=== PATIENT | female | born 1975 | race Caucasian/White ===

== ENCOUNTER 2018-06-08 14:41 | Emergency (ER) | payer MEDICAID ==
[~2018-06-08] VITALS: Ht 177.8 cm; Wt 99.8 kg
[2018-06-08 15:01] VITALS: BP 138/82
--- NOTE | 2018-06-08 15:08 | NUR ---
EKG BEING PERFORMED AT THIS TIME.
--- NOTE | 2018-06-08 15:10 | NUR ---
FLU LIKE SYMPTOMS SINCE LAST NIGHT. N/V X 1 DAY. DENIES DIARRHEA. TOOK TYLENOL @ 9 AM THIS AM. DURING ASSEMENT PT ALSO C/O CHEST PAIN. PT STATES THE CHEST PAIN IS MORE LIKE A MUSCLE ACHE. PMH:DM, ASTHMA, HIGH CHOLESTEROL, HTN, DEPRESSION RX: METFORMIN, LISINOPRIL, METOPROLOL, HUMALOG, LANTUS, CITRAMINE, ASPRIN, ZYRTEC, VITAMINS D NKA
[2018-06-08] MEDS ORDERED: IBUPROFEN 600 MG TAB PO ONE (15:20)
--- NOTE | 2018-06-08 15:24 | NUR ---
Patient being evaluated by physician at bedside.
[2018-06-08] MEDS ORDERED: ALBUTEROL SULFATE/IPRATROPIU 3 ML SOL IH ONE (15:45)
[2018-06-08] MEDS ORDERED: KETOROLAC 60 MG/2 ML VIAL IM ONE (15:45)
[2018-06-08] MEDS ORDERED: diphenhydrAMINE 50 MG/ML VIAL IM ONE (15:45)
--- NOTE | 2018-06-08 17:52 | NUR ---
Patient discharged with v/s stable. Written and verbal after care instructions given and explained. Patient alert, oriented and verbalized understanding of instructions. Ambulatory with steady gait. All questions addressed prior to discharge. ID band removed. Patient advised to follow up with PMD. Rx of TAMIFLU/PROMETHAZINE DM/AZITHROMYCIN given. Patient educated on indication of medication including possible reaction and side effects. Opportunity to ask questions provided and answered.
[2018-06-08 17:53] VITALS: BP 132/81
== END 2018-06-08 17:52 | disposition home or self-care (01) ==
LOC: MED 14:41
DX: J20.9 Acute bronchitis, unspecified (principal); R11.2 Nausea with vomiting, unspecified; J45.909 Unspecified asthma, uncomplicated; I10 Essential (primary) hypertension; F32.9 Major depressive disorder, single episode, unspecified; E78.00 Pure hypercholesterolemia, unspecified
CPT/HCPCS: 36415; 82948; 87804; 93005; 96372; 99284; J1200; J1885; J7620

== ENCOUNTER 2018-06-10 13:36 | Emergency (ER) | payer MEDICAID, OTHER ==
[~2018-06-10] VITALS: Ht 177.8 cm; Wt 99.8 kg
[2018-06-10 13:41] VITALS: BP 139/87
[2018-06-10] MEDS ORDERED: ALBUTEROL SULFATE/IPRATROPIU 3 ML SOL IH ONE (13:50)
[2018-06-10] MEDS ORDERED: methylPREDNISolone SS 125 MG/2 ML VIAL IVP ONE (14:05)
[2018-06-10] MEDS ORDERED: NACL 0.9% 1,000 ML IV ONE (14:05)
[2018-06-10] MEDS ORDERED: MAG SULF 2000 MG/WATER PREMIX 50 ML IV ONE (14:05)
[2018-06-10] MEDS ORDERED: cefTRIAXone 1,000 MG VIAL ONE (14:24)
[2018-06-10] MEDS ORDERED: KETOROLAC 30 MG/ML VIAL IVP ONE (15:10)
[2018-06-10 16:21] VITALS: BP 130/75
== END 2018-06-10 16:21 | disposition home or self-care (01) ==
LOC: MED 13:36
DX: J45.909 Unspecified asthma, uncomplicated (principal); E11.9 Type 2 diabetes mellitus without complications; E78.5 Hyperlipidemia, unspecified; I10 Essential (primary) hypertension
CPT/HCPCS: 71045; 94640; 96365; 96366; 96375; 99283; J0696; J1885; J2930; J3475; J7030; J7060; J7620

== ENCOUNTER 2019-03-05 12:07 | Emergency (ER) | payer SELFPAY ==
[~2019-03-05] VITALS: Ht 177.8 cm; Wt 103.9 kg
[2019-03-05 12:15] VITALS: BP 174/92
--- NOTE | 2019-03-05 12:19 | NUR ---
PT PLACED IN W/C AND ASSISTED BACK INTO LOBBY TO WAIT FOR AVAILABLE BED.
--- NOTE | 2019-03-05 13:15 | NUR ---
PT TAKEN TO BED 5 VIA W/C.
--- NOTE | 2019-03-05 13:23 | NUR ---
43 Y/O F PRESENTS TO ER C/O OF RIGHT KNEE PAIN SINCE YESTERDAY. PT WAS AT THE MARKET AND SLIPPED ON WATER AND FELL ON KNEE. DENIES LOC OR HEAD INJURY. RIGHT KNEE IS RED, SWOLLEN WITH AN ABRASION. PT APPLIED ICE ON KNEE LAST NIGHT. PAIN LEVEL 5/10, DULL CONSTANT PAIN. NKA. MED HX: DM, HTN, PVCS, HYPERLIPIDEMIA, AND DEPRESSION. SAFETY MEASURES IN PLACE. ERMD MADE AWARE OF PT STATUS.
--- NOTE | 2019-03-05 13:35 | NUR ---
ERMD AT BEDSIDE
--- NOTE | 2019-03-05 13:59 | NUR ---
EMT AT BEDSIDE APPLYING KNEE IMMOBILIZER AND CRUTCHES
--- NOTE | 2019-03-05 14:02 | NUR ---
TRANSFER OF CARE AND REPORT GIVEN TO [facility]
[2019-03-05 14:26] VITALS: BP 162/90
--- NOTE | 2019-03-05 14:26 | NUR ---
Patient discharged with v/s stable. Written and verbal after care instructions given and explained. Patient alert, oriented and verbalized understanding of instructions. Ambulatory with steady gait using crutches. All questions addressed prior to discharge. ID band removed. Patient advised to follow up with PMD. Copy of x-ray report given to patient. Rx of Motrin 800mg and [place] 5mg-325mg given. Patient educated on indication of medication including possible reaction and side effects. Opportunity to ask questions provided and answered.
== END 2019-03-05 14:26 | disposition home or self-care (01) ==
LOC: MED 12:07
DX: M25.461 Effusion, right knee (principal); M25.561 Pain in right knee; I10 Essential (primary) hypertension; E11.9 Type 2 diabetes mellitus without complications; E78.5 Hyperlipidemia, unspecified
CPT/HCPCS: 29505; 73562; 99283